=== PATIENT | male | born 1995 | race Two or more races ===

== ENCOUNTER 2019-09-20 07:03 | Emergency (ER) | payer MEDICAID, OTHER ==
[~2019-09-20] VITALS: Ht 185.4 cm; Wt 147.0 kg
[2019-09-20 07:11] VITALS: BP 136/82
== END 2019-09-20 08:54 | disposition home or self-care (01) ==
LOC: ER 07:03
DX: J06.9 Acute upper respiratory infection, unspecified (principal); R11.2 Nausea with vomiting, unspecified; R19.7 Diarrhea, unspecified